=== PATIENT | female | born 1990 | race Caucasian/White ===

== ENCOUNTER 2020-06-18 04:17 | Emergency (ER) | payer SELFPAY ==
[~2020-06-18] VITALS: Ht 167.6 cm; Wt 79.4 kg
[2020-06-18 04:31] VITALS: BP 136/85
[2020-06-18] MEDS ORDERED: GELATIN SPONGE,ABSORBABLE 1 SPONGE SPONGE TP ONE ×2 (04:36→05:00)
== END 2020-06-18 04:48 | disposition home or self-care (01) ==
LOC: ER 04:22
DX: N99.821 Postprocedural hemorrhage of a genitourinary system organ or structure following other procedure (principal); Z60.2 Problems related to living alone